=== PATIENT | female | born 1940 | race American Indian/Alaskan Native ===

== ENCOUNTER 2020-05-05 23:16 | Emergency (ER) | payer MEDICARE ==
[2020-05-05 23:25] VITALS: BP 148/69
--- NOTE | 2020-05-05 23:51 | Emergency Department Report ---
Upper Extremity - HPI Chief Complaint: Fall Stated Complaint: FALL; RT WRIST PAIN Time Seen by Provider: 05/05/20 23:30 Upper Extremity: Right Wrist Occurred When: Today Mechanism: Fall Severity: severe Symptoms: Yes Pain with Movement, Yes Deformity, Yes Limited Range of Movement, Yes Swelling, Yes Laceration or Abrasion, No Numbness, No Weakness, No Bruising/Ecchymosis Other History: . . Patient is a 79-year-old female that presents emergency room with complaints of right wrist pain. Patient states she fell just prior to coming to emergency room. Patient states she was going up the steps and slipped and fell onto her outstretched hand. Patient states she is having swelling and pain to the right wrist. Patient dates the pain is a 10 out of 10. Patient states her pain is severe. Patient states her pain is better with rest and worse with movement and palpation. Patient denies any other injuries. Patient denies loss of consciousness. Patient denies head injury. Patient denies neck pain. Patient denies recent travel. Patient denies recent international travel. Patient denies exposure to the novel coronavirus. Patient denies sick contacts. Patient denies fever and chills. Patient denies cough. Patient denies diarrhea. Patient denies coming in contact with anybody with symptoms of the novel coronavirus. ED Review of Systems ROS: Stated complaint: FALL; RT WRIST PAIN Other details as noted in HPI Constitutional: denies: chills, fever Eyes: denies: eye pain, eye discharge, vision change ENT: denies: ear pain, throat pain Respiratory: denies: cough, shortness of breath, wheezing Cardiovascular: denies: chest pain, palpitations Endocrine: no symptoms reported Gastrointestinal: denies: abdominal pain, nausea, diarrhea Genitourinary: denies: urgency, dysuria, discharge Musculoskeletal: denies: back pain, joint swelling, arthralgia Skin: denies: rash, lesions Neurological: denies: headache, weakness, paresthesias Psychiatric: denies: anxiety, depression Hematological/Lymphatic: denies: easy bleeding, easy bruising ED Past Medical Hx - Past Medical History Previous Medical History?: Yes Hx Hypertension: Yes - Surgical History Past Surgical History?: No - Family History Family history: no significant - Social History Smoking Status: Never Smoker Substance Use Type: None - Medications Home Medications: Home Medications Medication Instructions Recorded Confirmed Last Taken Type DOXYCYCLINE Hyclate [Vibramycin 100 mg PO BID 10 Days #20 tab 05/06/20 Unknown Rx CAP] Oxycodone HCl/Acetaminophen 1 each PO Q4HR PRN #15 tablet 05/06/20 Unknown Rx [Percocet 7.5/325 mg] cephALEXin [Keflex] 500 mg PO BID 10 Days #20 capsule 05/06/20 Unknown Rx Upper Extremity Exam - Exam General: Vital signs noted. No distress. Alert and acting appropriately. The patient appeared well nourished and normally developed. Vital signs as documented. Head exam is unremarkable. No scleral icterus or corneal arcus noted. Neck is supple. Lungs are clear to auscultation and percussion. Cardiac exam reveals the Rhythm is regular. First and second heart sounds normal. No murmurs, rubs or gallops. Head and Torso: No HEENT Abnormality, No Neck Tenderness, No Chest/Lungs Abnormality, No Abdominal Tenderness, No Back Tenderness Shoulder Exam: Yes Normal Range of Motion in Shoulder, No Shoulder Tenderness, No Clavicle Tenderness, No Shoulder Deformity, No AC Joint Tenderness Arm Exam: No Arm/Humerus Tenderness, No Arm Deformity Elbow: No Elbow Tenderness, No Normal Range of Motion in Elbow, No Elbow Deformity Forearm: No Forearm Tenderness, No Forearm Deformity, No Pain with Pronation, No Pain with Supination Wrist: Yes Wrist Tenderness, Yes Normal ROM in Wrist, Yes Wrist Deformity, Yes Snuffbox Tenderness Hand: Yes Normal ROM in Digit(s), No Hand Tenderness, No Hand Deformity, No Digit Tenderness, No Digit(s) Deformity, No Tendon Dysfunction CMS Exam: Yes Broken Skin (small lac, 1 cmon palmar aspect of rt wrist), No Normal Distal Pulses, No Normal Capillary Refill, No Normal Distal Sensation ED Course Vital Signs 05/05/20 23:23 Temperature 98.1 F Pulse Rate 98 H Respiratory 18 Rate Blood Pressure 148/69 O2 Sat by Pulse 97 Oximetry - Reevaluation(s) Reevaluation #1: Initial evaluation done. I cleaned and dressed the wrist laceration site with a sterile dressing. X-rays done and I reviewed the x-ray. 05/05/20 23:50 Reevaluation #2: Patient had a posterior short arm splint placed by our machine shop repair technician. Patient neurovascular intact. Good cap refill noted. I reassessed the splint and the neurovascular assessment was done pre and post splinting. Patient states her pain is better. I discussed all results and clinical findings with patient. I discussed plan of care with patient. Patient agrees with plan of care. Patient is stable for discharge. Patient will be discharged home. Patient given discharge instructions. Patient voiced understanding of discharge instructions. 05/06/20 00:41 - Consultations Consultation #1: I discussed case and the x-ray findings and clinical findings with Dr. Esquivel, orthopedics. Dr. Boyer recommends oral antibiotics and a splint and discharged home and he will see the patient on Friday morning. 05/05/20 23:55 - Orthopedic Splinting/Casting Injury #1 Side: right Upper Extremity Injury Location: wrist Upper Extremity Immobilizer: posterior splint Additional Comments: Neurovascular assessed and intact pre and post splinting. Good cap refill. ED Medical Decision Making - Radiology Data Radiology results: report reviewed, image reviewed interpreted by me: Right wrist x-ray: X-ray shows a distal radial fracture with displacement and angulation. Bone is intact no other osseous findings noted on today. No foreign bodies noted. RIGHT WRIST 3 VIEWS INDICATION / CLINICAL INFORMATION: right wrist pain and swelling. COMPARISON: None available. FINDINGS: BONES/JOINT(S): There is a comminuted fracture of the distal right radius with significant dorsal angulation of the predominant distal fracture fragments. No significant degenerative changes. SOFT TISSUES: No significant abnormality. ADDITIONAL FINDINGS: None. - Medical Decision Making Patient is a 79-year-old female that presents emergency room for right wrist pain after a fall. Patient had a single injury fall with her only complaint being right wrist pain and deformity. Patient also sustained a small abrasion laceration to the palmar aspect of her right wrist. The patient had a x-ray done of the right wrist which shows a radial fracture. This will be considered an open radial fracture since the patient has a laceration over the injury site. I discussed the case with orthopedist and Dr. Esquivel recommends discharge on oral antibiotics, pain management and for the patient to be splinted and follow- up with him within 2 days in his office. Patient given Dilaudid for pain. Patient responded well to pain medication. Patient given Tdap for the open wound. Patient also given a dose of oral antibiotics in the ER. Patient given discharge instructions. Patient is stable for discharge. Patient discharged home. - Differential Diagnosis Strain, sprain, fracture, contusion, wrist pain Critical Care Time: Yes Critical care time in (mins) excluding proc time.: 35 Critical care attestation.: If time is entered above; I have spent that time in minutes in the direct care of this critically ill patient, excluding procedure time. Critical Care Time: 35 minutes ED Disposition Clinical Impression: Fall (on) (from) other stairs and steps, initial encounter Wrist pain, acute Qualifiers: Laterality: right Qualified Code(s): M25.531 - Pain in right wrist Distal radius fracture, right Qualifiers: Encounter type: initial encounter Fracture type: open Open fracture type: open type I or II Fracture morphology: unspecified fracture morphology Qualified Code(s): S52.501B - Unspecified fracture of the lower end of right radius, initial encounter for open fracture type I or II Laceration of wrist Qualifiers: Encounter type: initial encounter Laterality: right Qualified Code(s): S61.511A - Laceration without foreign body of right wrist, initial encounter Disposition: DC- TO HOME OR SELFCARE Is pt being admited?: No Does the pt Need Aspirin: No Condition: Stable Instructions: Fall Prevention in the Home, Adult, [id number], Wrist Splint, Adult, [id number], Cast or Splint Care, Adult, [id number], Radial Fracture Rehab-SportsMed Additional Instructions: Patient to follow-up with primary care in 2 to 3 days. Patient to follow-up with orthopedist in 2 to 3 days. Patient to rest. Patient to increase water. Patient to avoid strenuous exercise or heavy lifting until cleared by orthopedist. Patient to keep splint on until cleared by orthopedist. Patient to use sling when up out of bed. Patient to take Tylenol or ibuprofen as needed for pain. Patient to take meds as directed. Patient to return to the ER if condition worsens, changes or new symptoms arise. Prescriptions: cephALEXin [Keflex] 500 mg PO BID 10 Days #20 capsule Oxycodone HCl/Acetaminophen [Percocet 7.5/325 mg] 1 each PO Q4HR PRN #15 tablet PRN Reason: Pain DOXYCYCLINE Hyclate [Vibramycin CAP] 100 mg PO BID 10 Days #20 tab Referrals: TARAH VALIENTE MD [Staff Physician] - 2-3 Days MELONIE ESQUIVEL MD [Staff Physician] - 2-3 Days Time of Disposition: 01:12
--- NOTE | 2020-05-05 23:59 | XRay Report ---
RIGHT WRIST 3 VIEWS INDICATION / CLINICAL INFORMATION: right wrist pain and swelling. COMPARISON: None available. FINDINGS: BONES/JOINT(S): There is a comminuted fracture of the distal right radius with significant dorsal ang ulation of the predominant distal fracture fragments. No significant degenerative changes. SOFT TISSUES: No significant abnormality. ADDITIONAL FINDINGS: None. Signer Name: Woody English MD Signed: 05/05/2020 11:55 PM Workstation Name: [id number]
[2020-05-06] MEDS ORDERED: DIPHtheria,PERTUSSIS(ACELL),TETANUS VACCINE/PF 0.5 ML VIAL IM ONE
[2020-05-06] MEDS ORDERED: HYDROmorphone 1 MG/1 ML INJ IM ONE (00:01)
[2020-05-06] MEDS ORDERED: DOXYCYCLINE 100 MG CAP PO ONE (01:10)
[2020-05-06] MEDS ORDERED: cephALEXin 500 MG CAP PO ONE (01:10)
== END 2020-05-06 01:37 | disposition home or self-care (01) ==
LOC: ED 23:16
DX: S52.501A Unspecified fracture of the lower end of right radius, initial encounter for closed fracture (principal); S61.511A Laceration without foreign body of right wrist, initial encounter; I10 Essential (primary) hypertension; Z79.899 Other long term (current) drug therapy; W10.9XXA Fall (on) (from) unspecified stairs and steps, initial encounter; Y93.89 Activity, other specified; Y92.89 Other specified places as the place of occurrence of the external cause; Y99.8 Other external cause status
CPT/HCPCS: 29125; 73110; 90471; 90715; 96372; 99283; J1170